=== PATIENT | female | born 1940 | race Caucasian/White ===

== ENCOUNTER 2021-02-06 12:40 | Outpatient (CLI) | payer MEDICARE, BC, SELFPAY ==
--- NOTE | 2021-02-06 12:57 | XR_ITS ---
WS: [id number] XR hip RT 2-3V wo/w pel* [id number] REASON FOR EXAM: HIP PAIN RIGHT FINDINGS: Severe narrowing of the hip joint space with significant osteophytic spur formation from the femoral head and acetabulum. Subchondral sclerosis in the acetabulum and femoral head. No fracture of the rig ht hip. Old healed fractures of the superior and inferior pubic ramus. 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 XR/XR hip RT 2-3V wo/w pel* [id number] IMPRESSION: Severe osteoarthritis of the right hip.
== END 2021-02-06 12:41 | disposition home or self-care (01) ==
LOC: RAD 12:50
PROVIDERS: PCP Electrodiagnostic Medicine; Visit Provider Electrodiagnostic Medicine
DX: I10 Essential (primary) hypertension (principal); M17.0 Bilateral primary osteoarthritis of knee; M16.11 Unilateral primary osteoarthritis, right hip
CPT/HCPCS: 73502